=== PATIENT | female | born 1980 | race Caucasian/White ===

== ENCOUNTER → 2024-03-18 | Outpatient (CLI) | payer OTHER ==
[2024-03-18 16:14] LABS: BASO # 0.03 K/mm3 (0.02-0.10); EOS % 1.4 % (1.0-5.0); HEMATOCRIT 40.6 % (37.0-47.0); HEMOGLOBIN 13.7 g/dL (12.5-16.0); LYMPH# 1.85 K/mm3 (1.50-4.00); MEAN CELL VOLUME 94 fl (78-100); MEAN CORPUSCULAR HEMOGLOBIN 32 pg (27-31); MEAN CORPUSCULAR HGB CONC 34 g/dL (33-37); MEAN PLATELET VOLUME 9.7 fl (7.4-10.4); MONO # 0.49 K/mm3 (0.20-0.80); NEU # 4.58 K/mm3 (1.40-6.50); PLATELET COUNT 188 K/mm3 (130-400); RED CELL DISTRIBUTION WIDTH 12.2 % (11.5-14.5); WHITE BLOOD COUNT 7.1 K/mm3 (4.8-10.8)
[2024-03-18 16:26] LABS: ALBUMIN 4.1 g/dL (3.5-5.0)
[2024-03-18 16:27] LABS: CALCIUM 9.3 mg/dL (8.3-10.5)
[2024-03-18 16:28] LABS: TOTAL PROTEIN 7.1 g/dL (6.4-8.3)
[2024-03-18 16:30] LABS: TOTAL BILIRUBIN 0.3 mg/dL (0.2-1.2)
== END ==
LOC: LAB 15:56
PROVIDERS: Physician Assistant
DX: Z13.220 Encounter for screening for lipoid disorders (principal); E07.9 Disorder of thyroid, unspecified; R53.83 Other fatigue